=== PATIENT | male | born 1955 | race Caucasian/White ===

== ENCOUNTER 2020-05-20 10:28 | Observation (INO) ==
[2020-05-20] MEDS ORDERED: 0.9 % Sodium Chloride 1,000 ML ONE (10:30)
[2020-05-20] MEDS ORDERED: 0.9 % Sodium Chloride 1,000 ML IVC ONE ×2 (10:30→11:10)
[2020-05-20 10:49] LABS: VBG HCO3 28 mEq/L (21-27); VBG PCO2 66 mmHg (41-51); VBG PH 7.24 pH Units (7.32-7.42); VBG PO2 59 mmHg (25-50)
[2020-05-20 10:51] LABS: Basophils % 0.4 %; Eosinophils # 0.3 K/mcL (0.0-0.6); Eosinophils % 3.4 %; Hematocrit 50.7 % (37.5-50.1); Hemoglobin 16.4 g/dL (12.9-16.9); Immature Granulocytes % 0.1 % (0-4); Lymphocytes # 2.5 K/mcL (0.6-4.6); Lymphocytes % 32.4 %; Mean Corpuscular HGB Conc 32.3 g/dL (31.6-35.5); Mean Corpuscular Hemoglobin 30.7 pg (28.0-33.3); Mean Corpuscular Volume 94.9 fL (83.0-100.0); Mean Platelet Volume 11.3 fL (9.4-12.4); Monocytes # 0.7 K/mcL (0.0-1.3); Monocytes % 9.3 %; Neutrophils # 4.2 K/mcL (1.6-8.9); Platelet Count 213 K/mcL (140-400); Red Blood Count 5.34 M/mcL (4.19-5.50); Red Cell Distribution Width 13.2 % (11.5-14.5); Segmented Neutrophils % 54.4 %; White Blood Count 7.7 K/mcL (4.3-11.1)
[2020-05-20 10:54] LABS: INR 1.1; Prothrombin Time 12.1 Seconds (9.4-12.1)
[2020-05-20 10:57] LABS: Activated Partial Thrombo Time 38.6 Seconds (26.0-36.0)
[2020-05-20] MEDS ORDERED: cefTRIAXone 2,000 MG in Water for inj. (sterile) 20 ML IVP ONE (11:00)
[2020-05-20 11:01] LABS: Carboxyhemoglobin 3.9 % (0-5)
[2020-05-20] MEDS ORDERED: Vancomycin 1,250 MG/262.5 ML IV.SOLN IVPB ONE (11:01)
[2020-05-20] MEDS ORDERED: Acyclovir 750 MG in D5% in Water 250 ML IVPB STA (11:01)
[2020-05-20 11:12] LABS: Alanine Aminotransferase 58 Units/L (7-52); Albumin 4.9 g/dL (3.5-5.7); Albumin/Globulin Ratio 1.6 (1.1-2.2); Alkaline Phosphatase 70 Units/L (34-104); Aspartate Amino Transferase 33 Units/L (13-39); BUN/Creatinine Ratio 17 (6-26); Bilirubin,Direct 0.1 mg/dL (0.0-0.2); Bilirubin,Indirect 0.7 mg/dL (0.0-1.0); Bilirubin,Total 0.8 mg/dL (0.3-1.0); Blood Urea Nitrogen 16 mg/dL (8-23); Carbon Dioxide 27 mEq/L (23-29); Chloride 103 mEq/L (98-107); Creatine Kinase 256 Units/L (30-223); Ethanol < 10 mg/dL (Less than 10); Glucose 148 mg/dL (70-105); Osmolality,Calculated 294 (280-300); Potassium 3.6 mEq/L (3.5-5.1); Sodium 140 mEq/L (136-145); Total Protein 7.9 g/dL (6.4-8.9); Troponin I < 0.03 ng/mL (< 0.04); eGFR For African Americans > 60 (> 60); eGFR For Non-African Americans > 60 (> 60)
[2020-05-20] MEDS ORDERED: Vancomycin 1,750 MG/517.5 ML IV.SOLN IVPB ONE (11:13)
[2020-05-20] MEDS ORDERED: Dexamethasone 10 MG/ML VIAL IVP SCH (11:15)
[2020-05-20 11:24] LABS: Thyroid Stimulating Hormone 3.046 mcIU/mL (0.340-5.600)
[2020-05-20 11:36] LABS: Bilirubin,Urine Negative (Negative); Blood,Urine Negative (Negative); Clarity,Urine Clear (Clear); Color,Urine Light-Yellow (Yellow); Glucose,Urine (UA) >=1000 mg/dL (Normal); Ketones,Urine Trace mg/dL (Negative); Leukocyte Esterase,Urine Negative (Negative); Mucus,Urine Few per lpf (None-Few); Nitrite,Urine Negative (Negative); Protein,Urine Negative (Neg-Trace); RBC,Urine 0-3 per hpf (0-3); Specific Gravity,Urine > 1.030 (1.010-1.025); Urobilinogen,Urine Normal (Normal); WBC,Urine 0-3 per hpf (0-3)
[2020-05-20 12:03] LABS: Amphetamine Screen,Urine Negative ng/mL (Cutoff=1000); Barbiturate Screen,Urine Negative ng/mL (Cutoff=200); Benzodiazepines Screen,Urine Negative ng/mL (Cutoff=300); Cannabinoid Screen,Urine Negative ng/mL (Cutoff = 50); Cocaine Screen,Urine Negative ng/mL (Cutoff= 300); Opiate Screen,Urine Negative ng/mL (Cutoff=300); Phencyclidine Screen,Urine Negative ng/mL (Cutoff=25)
[2020-05-20 12:53] LABS: Red Blood Cell,CSF < 2000 RBC/mcL
[2020-05-20 12:56] LABS: Appearance,CSF Clear (Clear)
[2020-05-20 13:13] LABS: Glucose,CSF 88 mg/dL (40-70); Total Protein,CSF 35 mg/dL (15-45)
[2020-05-20] MEDS ORDERED: Dexamethasone 4 MG/ML VIAL IVP ONE (13:25)
[2020-05-20] MEDS: 0.9 % Sodium Chloride 1,000 ML IVC SCH ×2 (13:57→19:48)
[2020-05-20] MEDS ORDERED: *HR* Promethazine 25 MG/ML VIAL IVP PRN (14:50)
[2020-05-20] MEDS ORDERED: Naloxone 0.4 MG/ML INJ IVP PRN (14:50)
[2020-05-20] MEDS ORDERED: Perflutren Lipid Microsphere 1.3 ML in 0.9 % Sodium Chloride 8.7 ML IVP PRN (15:13)
[2020-05-20] MEDS ORDERED: *HR* Dextrose 50 % in Water (Vial) 50 ML VIAL IVP PRN (15:20)
[2020-05-20] MEDS ORDERED: Dextrose Gel 15 GM/37.5 ML TUBE PO PRN ×2 (15:20)
[2020-05-20] MEDS ORDERED: D5% in Water 1,000 ML IVC PRN (15:20)
[2020-05-20 18:17] LABS: VBG HCO3 23 mEq/L (21-27); VBG PCO2 34 mmHg (41-51); VBG PH 7.43 pH Units (7.32-7.42); VBG PO2 212 mmHg (25-50)
[2020-05-20] MEDS: Insulin LISPRO 300 UNITS/3 ML VIAL SQ SCH (18:58)
[2020-05-20] MEDS: Acetaminophen 325 MG TABLET PO PRN (19:01)
[2020-05-20] MEDS: *HR* Heparin 5,000 UNIT/ML VIAL SQ SCH (19:02)
[2020-05-21] MEDS: 0.9 % Sodium Chloride 1,000 ML IVC SCH ×2 (01:57→12:38)
[2020-05-21 03:14] LABS: Basophils % 0.1 %; Hematocrit 44.7 % (37.5-50.1); Immature Granulocytes % 0.4 % (0-4); Lymphocytes # 1.3 K/mcL (0.6-4.6); Lymphocytes % 11.7 %; Mean Corpuscular HGB Conc 33.6 g/dL (31.6-35.5); Mean Corpuscular Hemoglobin 30.9 pg (28.0-33.3); Mean Platelet Volume 11.9 fL (9.4-12.4); Monocytes # 0.2 K/mcL (0.0-1.3); Monocytes % 2.1 %; Neutrophils # 9.6 K/mcL (1.6-8.9); Platelet Count 186 K/mcL (140-400); Red Blood Count 4.86 M/mcL (4.19-5.50); Red Cell Distribution Width 13.1 % (11.5-14.5); Segmented Neutrophils % 85.7 %; White Blood Count 11.2 K/mcL (4.3-11.1)
[2020-05-21] MEDS: Acetaminophen 325 MG TABLET PO PRN (03:19)
[2020-05-21 03:31] LABS: Chol/HDL Ratio 2.4 (0-4.9)
[2020-05-21 03:32] LABS: BUN/Creatinine Ratio 21 (6-26); Blood Urea Nitrogen 15 mg/dL (8-23); Calcium 8.7 mg/dL (8.6-10.3); Carbon Dioxide 19 mEq/L (23-29); Chloride 107 mEq/L (98-107); Glucose 152 mg/dL (70-105); Osmolality,Calculated 290 (280-300); Sodium 138 mEq/L (136-145); eGFR For African Americans > 60 (> 60); eGFR For Non-African Americans > 60 (> 60)
[2020-05-21] MEDS: *HR* Heparin 5,000 UNIT/ML VIAL SQ SCH (05:33)
[2020-05-21] MEDS: Insulin LISPRO 300 UNITS/3 ML VIAL SQ SCH ×2 (08:52→12:38)
[2020-05-21 08:54] LABS: Estimated Average Glucose 151 mg/dl
[2020-05-21 15:39] VITALS: BP 119/72
== END 2020-05-21 17:54 | disposition home or self-care (01) ==
LOC: EMEROOARM 10:28 → 3BNU 10:28
PROVIDERS: ADMIT Student in an Organized Health Care Education/Training Program; ATTEND Student in an Organized Health Care Education/Training Program